=== PATIENT | female | born 1960 | race Caucasian/White ===

== ENCOUNTER 2018-03-02 19:04 | Emergency (ER) | payer MEDICARE, MEDICAID ==
[~2018-03-02] VITALS: Ht 160 cm; Wt 81.7 kg
[~2018-03-02 19:04] MED LIST: ACCUNEB SO1.25 MG/1 INH; CELEXA10 MG PO; HYDROCODON-ACE1 EAC7 PO; HYDROCODONE-AP1 EAC6 PO; LISINOPRIL20 MG PO; MEDROLDOSEPACK PO; ROBAXIN 750 MG750 M1 PO; SPIRIVA INH; XANAX 0.25 MG0.25 MG PO
[2018-03-02] MEDS ORDERED: LIPITOR 20 MG T20 M1 PO (19:16)
[2018-03-02] MEDS ORDERED: AZOR 5-20 MG T1 EACH PO (19:16)
[2018-03-02] MEDS ORDERED: ULTRAM 50MG TAB50 MG PO (20:06)
[2018-03-02] MEDS ORDERED: MOBIC15 MG PO (20:06)
[2018-03-02] MEDS ORDERED: FLEXERIL PO (20:06)
[2018-03-02 20:25] VITALS: BP 160/92
== END 2018-03-02 20:26 | disposition home or self-care (01) ==
LOC: M.ERS 19:04
DX: S46.811A Strain of other muscles, fascia and tendons at shoulder and upper arm level, right arm, initial encounter (principal); M54.2 Cervicalgia; J44.9 Chronic obstructive pulmonary disease, unspecified; I10 Essential (primary) hypertension; F41.9 Anxiety disorder, unspecified; F32.9 Major depressive disorder, single episode, unspecified; Z90.710 Acquired absence of both cervix and uterus; F17.210 Nicotine dependence, cigarettes, uncomplicated; W18.2XXA Fall in (into) shower or empty bathtub, initial encounter; Y93.89 Activity, other specified; Y92.89 Other specified places as the place of occurrence of the external cause; Y99.8 Other external cause status

== ENCOUNTER 2019-10-25 15:19 | Inpatient (IN) | payer MEDICARE, MEDICAID ==
[~2019-10-25] VITALS: Ht 162.6 cm; Wt 90.0 kg
--- NOTE | ~2019-10-25 | CON ---
[address] [address] CONSULTATION Name: JUAN MIGUEL CRAMER Room: [address] IN M.R.#: [id number] Admission: 10/25/19 Attend Phys: Sunny Lopez MD Discharge: Date of : 58 Report #: [id number] THIS REPORT FOR: //name// cc: ABUNDIO Costa family physician/PCP ABUNDIO Costa family physician/PCP ~ THIS REPORT FOR: //name// CC: Sunny DEL CASTILLO physician/PCP DATE OF SERVICE: 10/26/2019 REASON FOR CONSULTATION: Thrombocytopenia. REQUESTING PHYSICIAN: Sunny Lopez M.D. HISTORY OF PRESENT ILLNESS: The patient is a 59-year-old woman who has multiple medical history including chronic obstructive pulmonary disease, chronic back pain, coronary artery disease, peripheral vascular disease, who was admitted to the hospital with complaints of right foot pain and bluish discoloration started several days ago. She is to undergo revascularization procedure because of ischemic foot. She was found to have thrombocytopenia; on admission, platelet count was 46. This morning, platelet counts remained stable. Hematology consult is requested. She was diagnosed with a acp-LZ-vszrskqbe myocardial infarction. She was started on heparin, platelets remained stable. This morning, she developed respiratory failure, is intubated and she is in Intensive Care Unit. According to the field case manager, most likely she had a mucous plug. Chest x-ray shows left lung complete opacification. On admission, she had bilateral interstitial and airspace opacities, COVID-19 test is pending. The patient is intubated, unable to obtain any history. PAST MEDICAL HISTORY: Significant for multiple medical problems which is listed above. PHYSICAL EXAMINATION: HEENT: Obese woman, intubated. SKIN: Reveals multiple bruises on the trunk, breast. HEART: Normal S1, S2. Regular rate and rhythm. ABDOMEN: Soft, obese. EXTREMITIES: Right foot and up to mid leg, cyanotic calf, edematous, tender with bluish discoloration. She has bluish discoloration of left toes as well. LABORATORY DATA: White count 24.8, hemoglobin 10.5, platelets 59, neutrophils 88%, total protein 6.3, albumin 2.3, AST 103, ALT 39, alkaline phosphatase 135, total bilirubin 1.2. [place] [address] CONSULTATION Name: JUAN MIGUEL CRAMER Room: [address]#: [id number] Admission: 10/25/19 Attend Phys: Sunny Lopez MD Discharge: Date of : 58 Report #: [id number] IMAGING DATA: Chest x-ray on admission multifocal interstitial and airspace opacities throughout bilaterally, more pronounced on the left lower lobe concerning for pneumonia. ASSESSMENT AND PLAN: Thrombocytopenia; assume that acute, most likely multifactorial. She has a possible underlying bacterial pneumonia, possibly sepsis and other reason for thrombocytopenia is an arterial thrombosis; thrombocytopenia seems mild and stable. Recommend to check B12, folate levels, serum protein electrophoresis, monitor CBC. Transfuse platelets if necessary for procedures or surgeries. Thank you very much for allowing me to participate in care of patient. I will follow the patient with you remotely. By: [id number] Fonseca MD /nt
[~2019-10-25 15:19] MED LIST changes: +AZOR 5-20 MG T1 EACH PO; +FLEXERIL PO; +LIPITOR 20 MG T20 M1 PO; +MOBIC15 MG PO; +ULTRAM 50MG TAB50 MG PO
[2019-10-25 15:20] VITALS: BP 102/52
[2019-10-25] MEDS ORDERED: BUSPIRONE HCL10 MG PO (15:33)
[2019-10-25] MEDS ORDERED: NEURONTIN 400M400 M2 PO (15:33)
[2019-10-25] MEDS ORDERED: TOPAMAX100 MG PO (15:34)
[2019-10-25] MEDS ORDERED: COZAAR 25 MG TA25 M1 PO (15:35)
[2019-10-25] MEDS ORDERED: NORVASC 2.5 MG2.5 M1 PO (15:36)
[2019-10-25] MEDS ORDERED: FLEXERIL PO (15:37)
[2019-10-25] MEDS ORDERED: SYMBICORT160 MCG/4. INH (15:38)
[2019-10-25] MEDS ORDERED: SPIRIVA INH (15:38)
[2019-10-25 15:47] LABS: HEMATOCRIT 41.1 % (37.0-47.0); HEMOGLOBIN 13.3 gm/dL (12.0-15.0); MCHC 32.5 g/dL (28.0-37.0); MCV 92.5 fL (80.0-100.0); MPV 10.9 fl. (7.2-11.1); NUCLEATED RBCS 0 /100WBC; RBC 4.44 mil/uL (4.20-5.00); WBC 29.2 thou/uL (4.0-11.0)
[2019-10-25 15:57] LABS: APTT 25.8 Seconds (25.0-31.3); INR 1.5; PROTIME 14.8 Seconds (9.20-11.50)
[2019-10-25 16:00] LABS: CALCIUM 8.1 mg/dL (8.5-10.1); POTASSIUM 4.3 mmol/L (3.5-5.1)
[2019-10-25 16:10] LABS: ALBUMIN 2.6 g/dL (3.4-5.0)
[2019-10-25 16:24] LABS: ABSOLUTE LYMPHOCYTES 0.9 thou/uL (0.8-5.3); ABSOLUTE NEUTROPHILS 26.3 thou/uL (1.6-8.1); LARGE PLATELETS OCCASIONAL; PLATELET ESTIMATE DECREASED
[2019-10-25 16:25] LABS: ANISOCYTOSIS 1+; MICROCYTES Occasional
[2019-10-25 16:27] LABS: PLATELET COUNT* 46 thou/uL (150-400)
[2019-10-25 18:27] VITALS: BP 120/75
[2019-10-25 18:52] VITALS: BP 97/56
[2019-10-25 20:40] LABS: BE -1.1 mmol/L (-2 to +3); PO2 70.2 mmHg (75.0-100.0); pH 7.337 (7.340-7.450)
[2019-10-25 21:00] VITALS: BP 115/73
[2019-10-26] VITALS (22 sets, daily range): BP systolic 85–145; BP diastolic 54–93
[2019-10-26 00:54] LABS: ABSOLUTE BASOPHILS 0.2 thou/uL (0.0-0.2); ABSOLUTE NEUTROPHILS 25.7 thou/uL (1.6-8.1); BASOPHILS 0.8 %; HEMATOCRIT 36.3 % (37.0-47.0); HEMOGLOBIN 11.8 gm/dL (12.0-15.0); LYMPHOCYTES 3.5 %; MCHC 32.6 g/dL (28.0-37.0); MPV 10.5 fl. (7.2-11.1); NUCLEATED RBCS 0 /100WBC; POLYS 88.7 %; RBC 3.95 mil/uL (4.20-5.00); RDW-CV 18.1 % (10.5-14.5)
[2019-10-26 00:58] LABS: PLATELET COUNT* 47 thou/uL (150-400)
[2019-10-26 01:00] LABS: CREATININE 0.9 mg/dL (0.6-1.3)
[2019-10-26 01:05] LABS: APTT 66.7 Seconds (25.0-31.3); INR 1.4; PROTIME 14.4 Seconds (9.20-11.50)
[2019-10-26 01:14] LABS: ALBUMIN 2.3 g/dL (3.4-5.0); MAGNESIUM 1.7 mg/dL (1.8-2.4); TOTAL BILIRUBIN 1.2 mg/dL (<0.1-1.0); TOTAL PROTEIN 6.2 g/dL (6.4-8.2)
--- NOTE | 2019-10-26 08:55 | EKG ---
[place] [address] ELECTROCARDIOGRAM REPORT Name: BELAJUAN MIGUEL Pa Room: [address] ADM IN M.R.#: [id number] Admission: 10/25/19 Attend Phys: Sunny Lopez, Discharge: Date of : 58 Date of Service: 10/25/19 1608 Report #: [id number] THIS REPORT FOR: //name// [facility] ED Test Date: 2019-10-25 Test Time: 16:08:46 Pat Name: JUAN MIGUEL CRAMER Department: Room: [address] Gender: F Executive Vice President And Chief Financial Officer: JAMSHID : 1960 Requested By: Faizan Gregory Order Number: [id number] Bhakti MD: Kenneth Addison Measurements Intervals [place] Rate: 111 P: 41 [place]: 120 QRS: -6 QRSD: 103 T: -70 QT: 369 QTc: 502 Interpretive Statements Sinus tachycardia Low voltage, precordial leads Abnormal R-wave progression, early transition Borderline T abnormalities, diffuse leads Borderline prolonged QT interval Baseline wander in lead(s) V4 No previous ECG available for comparison Electronically Signed On 10-26-2019 8:53:59 CDT by Kenneth Addison [email or web address] <ELECTRONICALLY SIGNED> By: Kenneth Addison MD, FACC 10/26/19 0853 1608 1608 Kenneth Addison MD, [facility] /EPI
--- NOTE | 2019-10-26 08:56 | EKG ---
[place] [address] ELECTROCARDIOGRAM REPORT Name: JUAN MIGUEL CRAMER Room: [address] ADM IN .R.#: [id number] Admission: 10/25/19 Attend Phys: Sunny Lopez, Discharge: Date of : 58 Date of Service: 10/25/19 192 Report #: [id number] THIS REPORT FOR: //name// [facility] Test Date: 2019-10-25 Test Time: 19:28:39 Pat Name: JUAN MIGUEL CRAMER Department: Room: [facility] Gender: F [employer]: HERMES : 1960 Requested By: Navin Dixon Order Number: [id number] MD: Kenneth Addison Measurements Intervals [place] Rate: 110 P: 37 [place]: 120 QRS: -13 QRSD: 81 T: -59 QT: 355 QTc: 481 Interpretive Statements Sinus tachycardia Anteroseptal infarct, age indeterminate low voltage nonspecific t wave changes Electronically Signed On 10-26-2019 8:55:14 CDT by Kenneth Addison [email or web address] <ELECTRONICALLY SIGNED> By: Kenneth Addison MD, FAC 10/26/19 0855 1928 Kenneth Addison MD, [facility] /EPI
[2019-10-26 09:33] LABS: BE 1.2 mmol/L (-2 to +3); PO2 61.4 mmHg (75.0-100.0)
[2019-10-26 09:38] LABS: PCO2 52.5 mmHg (35.0-45.0)
[2019-10-26 11:22] LABS: ABSOLUTE LYMPHOCYTES 0.8 thou/uL (0.8-5.3); ABSOLUTE MONOCYTES 1.7 thou/uL (0.0-1.2); ABSOLUTE NEUTROPHILS 22.2 thou/uL (1.6-8.1); BASOPHILS 0.2 %; HEMATOCRIT 31.6 % (37.0-47.0); HEMOGLOBIN 10.2 gm/dL (12.0-15.0); LYMPHOCYTES 3.3 %; MCH 30.3 pg (26.0-34.0); MCHC 32.4 g/dL (28.0-37.0); MCV 93.5 fL (80.0-100.0); MONOCYTES 6.8 %; MPV 10.4 fl. (7.2-11.1); NUCLEATED RBCS 0 /100WBC; PLATELET COUNT* 59 thou/uL (150-400); POLYS 89.7 %; RBC 3.38 mil/uL (4.20-5.00); WBC 24.8 thou/uL (4.0-11.0)
[2019-10-26 11:22] LABS: BE -0.5 mmol/L (-2 to +3); PCO2 48.8 mmHg (35.0-45.0); PO2 63.1 mmHg (75.0-100.0); pH 7.339 (7.340-7.450)
[2019-10-26 11:43] LABS: CALCIUM 6.8 mg/dL (8.5-10.1); POTASSIUM 4.1 mmol/L (3.5-5.1)
[2019-10-26 11:46] LABS: MAGNESIUM 1.9 mg/dL (1.8-2.4); PHOSPHORUS* 3.7 mg/dL (2.5-4.9)
--- NOTE | 2019-10-26 12:39 | 2DMMODE ---
[place] [address] 2 D/M-MODE ECHOCARDIOGRAM Name: JUAN MIGUEL CRAMER Room: [address] ADM IN [place].#: [id number] Admission: 10/25/19 Attend Phys: Sunny Lopez, Discharge: Date of : 58 Date of Service: 10/26/19 1238 Report #: [id number] THIS REPORT FOR: cc: FAM - No family physician/PCP FAM - No family physician/PCP Kenneth Addison MD [facility] ~ APPROVED REPORT Study performed: 10/26/2019 11:19:51 EXAM: Comprehensive 2D, Doppler, and color-flow Echocardiogram Patient Location: In-Patient Room #: 007 Status: routine BSA: 1.89 HR: 79 bpm BP: 71/47 mmHg Rhythm: NSR Other Information Study Quality: Fair Technically limited study due to limited parasternal views. Indications COPD Elevated Troponin Tricuspid Valve RAP Estimate: 10.00 mmHg TR Peak Gr.: 35.87 mmHg RVSP: 45.00 mmHg PA Pressure: 45.00 mmHg Left Ventricle The left ventricle is normal size. There is normal LV segmental wall motion. There is normal left ventricular wall thickness. Left ventricular systolic function is normal. The left ventricular ejection fraction is within the normal range. LVEF is 50-55%. This study is not technically sufficient to allow evaluation of the LV diastolic function. Right Ventricle Right ventricle is severely dilated. Right ventricle [place] [address] 2 D/M-MODE ECHOCARDIOGRAM Name: JUAN MIGUEL CRAMER Room: [address] IN M.R.#: [id number] Admission: 10/25/19 Attend Phys: Sunny Lopez, Discharge: Date of : 58 Date of Service: 10/26/19 1238 Report #: [id number] [place] The left atrium size is normal. Right atrium is severely dilated. Aortic Valve The aortic valve is normal in structure. No aortic regurgitation is present. There is no aortic valvular stenosis. Mitral Valve The mitral valve is normal in structure. There is no mitral valve regurgitation noted. No evidence of mitral valve stenosis. Tricuspid Valve The tricuspid valve is normal in structure. Moderate tricuspid regurgitation. estimated pa pressure 60 mm Hg Pulmonic Valve The pulmonary valve is normal in structure. There is no pulmonic valvular regurgitation. Great Vessels The aortic root is normal in size. IVC is dilated. Pericardium There is no pericardial effusion. <Conclusion> LVEF is 50-55%. Right ventricle is severely dilated. Right ventricle is moderately hypokinetic. Right atrium is severely dilated. Moderate tricuspid regurgitation. estimated pa pressure 60 mm Hg <ELECTRONICALLY SIGNED> By: Kenneth Addison MD, FACC 10/26/19 1238 1238 1238 Kenneth Addison MD, FAC /INF
[2019-10-26 15:53] LABS: ABSOLUTE LYMPHOCYTES 1.3 thou/uL (0.8-5.3); ABSOLUTE MONOCYTES 1.5 thou/uL (0.0-1.2); BASOPHILS 0.2 %; HEMATOCRIT 32.4 % (37.0-47.0); HEMOGLOBIN 10.4 gm/dL (12.0-15.0); LYMPHOCYTES 5.3 %; MCH 30.2 pg (26.0-34.0); MCV 94.5 fL (80.0-100.0); MONOCYTES 6.3 %; MPV 10.4 fl. (7.2-11.1); NUCLEATED RBCS 0 /100WBC; PLATELET COUNT* 60 thou/uL (150-400); POLYS 88.2 %; RBC 3.43 mil/uL (4.20-5.00); RDW-CV 18.5 % (10.5-14.5); WBC 23.8 thou/uL (4.0-11.0)
[2019-10-26 16:09] LABS: APTT 25.8 Seconds (25.0-31.3); INR 1.3
--- NOTE | 2019-10-26 16:24 | CON ---
[address] [address] CONSULTATION Name: JUAN MIGUEL CRAMER Room: [address] IN M.R.#: [id number] Admission: 10/25/19 Attend Phys: Sunny Lopez MD Discharge: Date of : 58 Report #: [id number] THIS REPORT FOR: //name// cc: ABUNDIO Costa family physician/PCP ABUNDIO Costa family physician/PCP ~ THIS REPORT FOR: //name// CC: Sunny DEL CASTILLO physician/PCP DATE OF SERVICE: 10/26/2019 INFECTIOUS DISEASE CONSULTATION ATTENDING PHYSICIAN: Sunny Lopez MD REASON FOR ADMISSION: Ischemic right lower extremity, did present with cough, concern about COVID-19 infection. HISTORY OF PRESENT ILLNESS: Chart reviewed. The patient examined. This is a 59-year-old with extensive medical history given her age. She has got advanced lung disease. It often requires supplemental oxygen up to 2 liters. Does have known vasculopathy, previous non-ST elevation myocardial infarction, presented with complaints of right distal lower extremity pain, foot is discolored. It is cold. Onset roughly 4 days prior to admission. At that time of admission did admit to chronic cough, she is a smoker, confirmed to be hypoxemic. She has been afebrile. Due to her deteriorating status, she was intubated and now is on mechanical ventilator support, FiO2 of 0.95, have moderate secretions. She is sedated. Hemodynamically, she is requiring some pressor support with norepinephrine to maintain a normal attention. She seems to have adequate urine output. She is empirically started on antimicrobial therapy including piperacillin and tazobactam. Blood cultures in progress. ALLERGIES: None known. MEDICATIONS: Include norepinephrine, propofol, fentanyl, Zosyn, amlodipine, losartan, citalopram, pantoprazole, gabapentin, cyclobenzaprine, buspirone, p.r.n. analgesics. PAST MEDICAL HISTORY: Above noted COPD, at times O2 requiring; hypertension; anxiety; depression. She does have vasculopathy with previous myocardial infarction, peripheral vascular disease. SOCIAL HISTORY: Smokes a pack a day. No illicit drug use. No ethanol. FAMILY HISTORY: [place] [address] CONSULTATION Name: JUAN MIGUEL CRAMER Room: [address]#: [id number] Admission: 10/25/19 Attend Phys: Sunny Lopez MD Discharge: Date of : 58 Report #: [id number] REVIEW OF SYSTEMS: Not obtainable. PHYSICAL EXAMINATION: GENERAL: She appears ill. She is supine. She is intubated via endotracheal tube and OG tube in place, appears somewhat chronically ill. VITAL SIGNS: Temperature 98.7, pulse 68, respirations 18, blood pressure 111/67. SKIN: Warm, dry, no rashes. HEENT: Various tubes in place. Normocephalic. NECK: Supple. LUNGS: Scattered coarse breath sounds. HEART: Distant, regular. ABDOMEN: Mildly distended, soft. There are no peritoneal signs. GENITOURINARY: Deferred. RECTAL: Deferred. LABORATORY DATA: Echo shows a left ventricular ejection fraction of 50-55%. Right ventricle is severely dilated and moderately hypokinetic, pulmonary artery pressures 60 mmHg. Electrolytes: Sodium 141, potassium 4.1, chloride 105, bicarbonate is 29, anion gap of 7, BUN and creatinine 22 and 1.0, glucose of 157. Troponin 1.23. Lactic acid 1.7. CBC: White count of 24.8, H and H 10.2 and 31.6, platelets of 59. Chest x-ray collapsed left lung. Normal aeration of the right lung. ABGs earlier today, pH 7.340, pCO2 of 52.5, pO2 of 61.4, FiO2 of 100%. Blood cultures are sterile thus far. Liver functions were noted overnight. AST elevated at 103, ALT of 39, albumin of 2.3, total protein of 6.2. Differential showed a white count elevated at 29.0, absolute lymphocyte count of 1000, H and H 11.8 and 36.3, platelets of 47. ASSESSMENT AND PLAN: Ischemic right lower extremity. Shortly the evidence would favor against limb salvage, I think. We will continue aggressive resuscitative and supportive care at this point, try to wean off some oxygen. We will check sputum culture, sent off an MRSA. COVID is pending. I think that is quite reasonable. We will continue isolation. At this point, her prognosis appears quite guarded. Continue the empiric antibacterials. Discussed with Dr. Chen. <ELECTRONICALLY SIGNED> By: Jelani Kc MD 10/26/19 1624 1342 1419Joryan Kc MD /nt
[2019-10-27] VITALS (81 sets, daily range): BP systolic 88–134; BP diastolic 41–85
[2019-10-27 04:31] LABS: HEMATOCRIT 31.3 % (37.0-47.0); HEMOGLOBIN 10.2 gm/dL (12.0-15.0); MCH 30.7 pg (26.0-34.0); MCHC 32.7 g/dL (28.0-37.0); MCV 93.9 fL (80.0-100.0); MPV 10.1 fl. (7.2-11.1); RBC 3.33 mil/uL (4.20-5.00); RDW-CV 17.8 % (10.5-14.5); WBC 24.3 thou/uL (4.0-11.0)
[2019-10-27 04:47] LABS: CALCIUM 6.9 mg/dL (8.5-10.1); CREATININE 0.8 mg/dL (0.6-1.3); POTASSIUM 4.3 mmol/L (3.5-5.1)
[2019-10-27 05:31] LABS: BE -4.4 mmol/L (-2 to +3); PCO2 45.3 mmHg (35.0-45.0); PO2 87.9 mmHg (75.0-100.0); pH 7.302 (7.340-7.450)
[2019-10-28] VITALS (44 sets, daily range): BP systolic 73–113; BP diastolic 31–60
[2019-10-28 05:21] LABS: HEMATOCRIT 25.2 % (37.0-47.0); MCH 29.9 pg (26.0-34.0); MCHC 31.3 g/dL (28.0-37.0); MCV 95.4 fL (80.0-100.0); MPV 8.8 fl. (7.2-11.1); NUCLEATED RBCS 0 /100WBC; RBC 2.64 mil/uL (4.20-5.00); RDW-CV 18.7 % (10.5-14.5); WBC 17.1 thou/uL (4.0-11.0)
[2019-10-28 05:52] LABS: HEMOGLOBIN 7.9 gm/dL (12.0-15.0)
[2019-10-28 05:55] LABS: PLATELET COUNT* 42 thou/uL (150-400)
[2019-10-28 06:12] LABS: CALCIUM 6.8 mg/dL (8.5-10.1); CREATININE 0.9 mg/dL (0.6-1.3); POTASSIUM 4.8 mmol/L (3.5-5.1)
[2019-10-28 06:20] LABS: BE -7.5 mmol/L (-2 to +3); PCO2 40.3 mmHg (35.0-45.0); PO2 72.4 mmHg (75.0-100.0)
[2019-10-28 06:22] LABS: pH 7.284 (7.340-7.450)
[2019-10-28 06:59] LABS: ABSOLUTE LYMPHOCYTES 0.3 thou/uL (0.8-5.3); ABSOLUTE MONOCYTES 0.3 thou/uL (0.0-1.2); ABSOLUTE NEUTROPHILS 16.4 thou/uL (1.6-8.1); PLATELET ESTIMATE ADEQUATE
--- NOTE | 2019-10-28 09:07 | CON ---
[address] [address] CONSULTATION Name: JUAN MIGUEL CRAMER Room: [address] IN M.R.#: [id number] Admission: 10/25/19 Attend Phys: Sunny Lopez MD Discharge: Date of : 58 Report #: [id number] THIS REPORT FOR: //name// cc: ABUNDIO Costa family physician/PCP ABUNDIO Costa family physician/PCP ~ THIS REPORT FOR: //name// CC: Sunny DEL CASTILLO physician/PCP DATE OF SERVICE: 10/25/2019 VASCULAR SURGERY CONSULTATION REQUESTING PHYSICIAN: Dr. Dixon in the Emergency Department. REASON FOR CONSULTATION: Ischemic right foot. HISTORY OF PRESENT ILLNESS: The patient is a very pleasant 59-year-old white female who presents with a 4-day history of right foot pain. Pain began approximately 3-4 days ago. At least the last 2 days, she has been unable to move or feel her right foot, has been unable to stand and walk on it. She has been lying in bed the last 3-4 days due to foot pain. She does not have any history of atrial fibrillation. She had no claudication previously. REVIEW OF SYSTEMS: A 12-point review of systems is reviewed and negative as per HPI. PAST MEDICAL HISTORY: Significant for COPD, hypertension, anxiety, depression, hysterectomy, bladder sling, hernia repair, tumor excision from the eye, colon resection. HOME MEDICATIONS: Include hydrocodone and she is under the direction paintings conservator. She also takes Celexa, Lipitor, Neurontin, buspirone, Topamax, Cozaar, Norvasc, Flexeril, Spiriva and Symbicort. ALLERGIES: No known drug allergies. SOCIAL HISTORY: The patient smokes one pack of cigarettes per day. Denies alcohol or drug use. PHYSICAL EXAMINATION: GENERAL: The patient in no acute distress. She is alert and oriented. VITAL SIGNS: Afebrile. Vital signs stable. HEENT: Normocephalic, atraumatic. NECK: [place] [address] CONSULTATION Name: CRAMER,JUAN MIGUEL J Room: [address] IN [facility].#: [id number] Admission: 10/25/19 Attend Phys: Sunny Lopez MD Discharge: Date of : 58 Report #: [id number] HEART: Regular. LUNGS: Equal. ABDOMEN: Soft, nontender. The patient is obese. EXTREMITIES: Left foot with easily palpable dorsalis pedis and posterior tibial pulses. Foot was pink and warm. On the right side, her right foot is demarcated up to the level of the ankle. It is ischemic and not salvageable. There are no palpable pulses or signals. Her foot is ice cold. She is cool up to the level of her knee. She is tender in her compartments throughout her lower leg consistent with muscle necrosis. She is unable to flex or extend her ankle, also consistent with muscle and nerve necrosis. NEUROLOGIC: Grossly intact except for the right lower extremity as described above. LABORATORY DATA: The patient's white count is 29,000. ASSESSMENT: Ischemic right foot and lower extremity, which is not salvageable at this point likely has been ischemic for at least the last 48-72 hours. RECOMMENDATIONS: At this point, I am recommending amputation, which would likely be [id number] amputation. Revascularization would be unsuccessful as the foot is no longer viable and could lead to sepsis and reperfusion syndrome if we will revascularize the tissue. I have talked with her and her son and she is agreeable to amputation tomorrow. We will also obtain a CT angiogram to assess for any further revascularization may be required to heal her amputation site. Thank you very much for involving me in the care of this very pleasant patient. Please feel free to call me with any questions or concerns about assessment and plan. <ELECTRONICALLY SIGNED> By: Thaddeus Hightower DO 10/28/19 0907 1654 0122Raster Thakur MD /maryana
--- NOTE | 2019-10-28 09:07 | OP ---
[address] [address] OPERATIVE REPORT Name: JUAN MIGUEL CRAMER Room: [address] IN .R.#: [id number] Admission: 10/25/19 Attend Phys: Sunny Lopez MD Discharge: Date of : 58 Report #: [id number] THIS REPORT FOR: //name// cc: ABUNDIO Costa family physician/PCP ABUNDIO Costa family physician/PCP ~ THIS REPORT FOR: //name// CC: Sunny Lopez FAM physician/PCP DATE OF SERVICE: 10/27/2019 PREOPERATIVE DIAGNOSIS: Ischemic right lower extremity, non-salvageable. POSTOPERATIVE DIAGNOSIS: Ischemic right lower extremity, non-salvageable. PROCEDURE: 1. Right above-knee amputation. 2. Left internal jugular triple lumen catheter. SURGEON: Pedro Thakur MD. ASTROPHYSICS TEACHER: Oleg Peralta DO, Resident, Ortho. COMPLICATIONS: None. ESTIMATED BLOOD LOSS: 200 mL. SPECIMEN: Includes right above-knee amputation leg. ANESTHESIA: General. INDICATIONS FOR PROCEDURE: The patient is a very pleasant 59-year-old white female who is critically ill. She has an ischemic right leg which is not salvageable, has been ischemic for approximately a week. She has acute embolism to that leg. We plan for right above-knee amputation. The patient is critically ill. Informed consent was obtained from her daughter and son, both of whom are agreeable to proceeding. They understand that she will likely if we do not amputate the leg. DESCRIPTION OF PROCEDURE: The patient was taken to the OR urgently. She was placed in supine position. She was already intubated and sedated. General anesthesia was initiated. Right leg was circumferentially prepped and draped in usual sterile fashion. I created a fishmouth incision on the right above-knee thigh. Sharp and blunt dissections were carried on the femur. Femur was divided with a bone saw. We doubly ligated [place] [address] OPERATIVE REPORT Name: JUAN MIGUEL CRAMER Pa Room: [address] IN [facility].#: [id number] Admission: 10/25/19 Attend Phys: Sunny Lopez MD Discharge: Date of : 58 Report #: [id number] created a posterior flap. We removed the specimen off the field. We controlled bleeding as needed with electrocautery, ties and clips. We irrigated vigorously with antibiotic saline. We closed the wound in multiple layers using interrupted 2-0 Vicryl, running 3-0 Vicryl and lindsey for the skin. Incision was dressed with Prevena VAC. I then turned my attention to the patient's right neck. I prepped and draped the right neck in the usual sterile fashion. Under ultrasound guidance with an image saved, I cannulated the right internal jugular vein without difficulty. I used Seldinger technique to exchange out for a dilator and then the triple lumen catheter. All 3 ports flushed without difficulty. I secured the catheter in place with the nylon suture. I dressed it in standard fashion. Portable chest x-ray is pending. The patient was taken back to the ICU, intubated and sedated, in critical condition. <ELECTRONICALLY SIGNED> By: Thaddeus Hightower DO 10/28/19 0907 1221 1243Pedro Thakur MD /nt
[2019-10-28 11:05] LABS: APTT 32.9 Seconds (25.0-31.3); INR 1.6; PROTIME 16.3 Seconds (9.20-11.50)
[2019-10-28 14:56] LABS: ABSOLUTE LYMPHOCYTES 0.6 thou/uL (0.8-5.3); ABSOLUTE NEUTROPHILS 13.5 thou/uL (1.6-8.1); BASOPHILS 0.2 %; HEMATOCRIT 25.4 % (37.0-47.0); LYMPHOCYTES 4.1 %; MCH 30.6 pg (26.0-34.0); MCHC 31.4 g/dL (28.0-37.0); MCV 97.3 fL (80.0-100.0); MONOCYTES 6.7 %; MPV 9.8 fl. (7.2-11.1); NUCLEATED RBCS 0 /100WBC; RBC 2.61 mil/uL (4.20-5.00); RDW-CV 18.9 % (10.5-14.5); WBC 15.2 thou/uL (4.0-11.0)
[2019-10-28 15:02] LABS: PLATELET COUNT* 23 thou/uL (150-400)
[2019-10-30 12:07] LABS: GLOBULIN TOTAL 2.8 g/dL (2.2-3.9); M-SPIKE Not Observed g/dL (Not Observed)
== END 2019-10-28 15:59 | DRG 853 ==
LOC: M.ERS 15:19 → M.ICU 17:06 → M.TBA-ER 17:06 → M.2W 17:06 → M.ICU 10-26 09:45
PROVIDERS: Family Medicine; Internal Medicine Hematology & Oncology; Internal Medicine Pulmonary Disease; ADMIT Internal Medicine
PROC: 05HN33Z Insertion of Infusion Device into Left Internal Jugular Vein, Percutaneous Approach (ICD-10-PCS; principal; 2019-10-26)
PROC: 0Y6F0ZZ Detachment at Right Knee Region, Open Approach (ICD-10-PCS; principal; 2019-10-26)
PROC: 5A1945Z Respiratory Ventilation, 24-96 Consecutive Hours (ICD-10-PCS; principal; 2019-10-26)
PROC: 0BH18EZ Insertion of Endotracheal Airway into Trachea, Via Natural or Artificial Opening Endoscopic (ICD-10-PCS; principal; 2019-10-26)
DX: A41.9 Sepsis, unspecified organism (principal); I21.4 Non-ST elevation (NSTEMI) myocardial infarction; J18.9 Pneumonia, unspecified organism; G92 Toxic encephalopathy; J96.91 Respiratory failure, unspecified with hypoxia; L03.115 Cellulitis of right lower limb; M62.82 Rhabdomyolysis; J98.11 Atelectasis; I99.8 Other disorder of circulatory system; J44.9 Chronic obstructive pulmonary disease, unspecified; F41.9 Anxiety disorder, unspecified; F32.9 Major depressive disorder, single episode, unspecified; M54.9 Dorsalgia, unspecified; G89.29 Other chronic pain; I25.10 Atherosclerotic heart disease of native coronary artery without angina pectoris; D69.6 Thrombocytopenia, unspecified; F17.210 Nicotine dependence, cigarettes, uncomplicated; T17.990A Other foreign object in respiratory tract, part unspecified in causing asphyxiation, initial encounter; X58.XXXA Exposure to other specified factors, initial encounter; Z99.81 Dependence on supplemental oxygen; Y93.89 Activity, other specified; Y92.89 Other specified places as the place of occurrence of the external cause; Z90.49 Acquired absence of other specified parts of digestive tract; Z79.891 Long term (current) use of opiate analgesic; Z79.899 Other long term (current) drug therapy; Z90.710 Acquired absence of both cervix and uterus; Y99.8 Other external cause status; E66.9 Obesity, unspecified; Z68.34 Body mass index [BMI] 34.0-34.9, adult; I50.9 Heart failure, unspecified; I11.0 Hypertensive heart disease with heart failure